=== PATIENT | male | born 1950 | race Caucasian/White ===

== ENCOUNTER 2020-11-07 15:38 | Inpatient (IN) | payer MEDICARE, SELFPAY ==
[2020-11-07] VITALS (14 sets, daily range): BP systolic 152–163; BP diastolic 75–88; PULSE 83–90; RESP 17–32; TEMP 36.4–36.8; O2SAT 96–100; BMI 35.5
--- NOTE | ~2020-11-07 | XR_ITS ---
XR chest 2V 11/07/2020 17:36 Indication: Anasarca. Scrotal and bilateral leg swelling. Procedure: PA and lateral views of the chest Comparison: No prior studies Findings: Patchy bilateral infiltrates, suspicious for pneumonia. Small pleural effusions. No pneumot horax. Cardiomegaly. Impression: 1: Patchy bilateral infiltrates, suspicious for pneumonia. 2: Small pleural effusions. Reviewed, dictated and finalized at location A. Y HUSBANDMAN Impression: 1: Patchy bilateral infiltrates, suspicious for pneumonia. 2: Small pleural effusions.
--- NOTE | ~2020-11-07 | CT_ITS ---
EXAMINATION: CT abdomen pelvis w con DATE: 11/07/2020 17:20 INDICATION: Anasarca. Scrotal swelling. TECHNIQUE: Computed tomography (CT) of the abdomen and pelvis was performed with 100 cc Omnipaque 350 intravenous contrast. The dose-length product was 1608.08 mGy-cm. Automated exposure control and ite rative reconstruction technique were employed. COMPARISON: None. FINDINGS: There are small-moderate bilateral pleural effusions. Dependent atelectasis. Heart size nor mal. There is diffuse subcutaneous edema. There is mild diffuse mesenteric edema. There is a fat-cont aining periumbilical hernia. There is mild thickening with enhancement of proximal small bowel, suspi cious for enteritis. No obstruction. Enlarged prostate gland. There is scrotal edema which is partial ly visualized. There is ascites. There is a 6.3 cm right renal cyst. The liver, spleen, adrenal glands are unremarka ble. There is a small exophytic 9 mm hyperdense lesion of the left kidney. There is atherosclerosis o f the aorta without aneurysm. There is diffuse pancreatic atrophy. There is moderate lower thoracic a nd lumbar spondylosis. No osteolytic or osteoblastic lesions. No free air is identified. Gallbladder is present. There is a small soft tissue nodule in the left up per abdomen which is isodense to the spleen, likely an accessory splenule. Prostate gland is enlarged . IMPRESSION: 1. Anasarca characterized by bilateral pleural effusions, ascites, subcutaneous edema and mesenteric edema. 2: Segmental mucosal thickening with enhancement of proximal small bowel, suspicious for enteritis. N o definite obstruction. 3: Hyperdense exophytic 9 mm left renal lesion which may represent benign hyperdense cyst, although r enal cell carcinoma is not excluded. Reviewed, dictated and finalized at location A. STANT PARALEGAL IMPRESSION: 1. Anasarca characterized by bilateral pleural effusions, ascites, subcutaneous edema and mesenteric edema. 2: Segmental mucosal thickening with enhancement of proximal small bowel, suspi cious for enteritis. No definite obstruction. 3: Hyperdense exophytic 9 mm left renal lesion which may represent benign hyper dense cyst, although renal cell carcinoma is not excluded.
--- NOTE | ~2020-11-07 | US_ITS ---
US scrotum doppler INDICATION: Scrotal wall edema with scrotal pain TECHNIQUE: Testicular sonogram utilizing grayscale and color Doppler FINDINGS: The testes are normal in size and appearance. No focal lesions are seen. The right testes measures 4.2 x 2.6 x 3.3 cm centimeters, and the left testis measures 4.5 x 2.6 x 3 cm cm. There is n ormal vascular flow to both testes. There is extensive scrotal wall edema bilaterally. There is a 6 mm left epididymal cyst. There is no varicocele or hydrocele. IMPRESSION: 1. Extensive scrotal wall edema suspicious for cellulitis. 2: 6 mm left epididymal cyst. Reviewed, dictated and finalized at location A. ER SALESMAN
--- NOTE | ~2020-11-07 | US_ITS ---
EXAMINATION: US abdomen duplex [employer] DATE: 11/08/2020 10:26 INDICATION: Anasarca TECHNIQUE: Grayscale, color Doppler, and pulsed Doppler images of the portal and hepatic veins and he patic artery are obtained. COMPARISON: None. FINDINGS: The main, left, and right portal veins are patent. Flow direction is hepatopetal. The hepat ic veins are patent. Normal flow is seen within the hepatic artery and inferior vena cava. IMPRESSION: 1. No evidence of thrombosis. Reviewed, dictated and finalized at location A. GEMENT DIRECTOR
[2020-11-07 16:19] LABS: Basophils Percent Auto 0.5 % (0.2-1.2); Eosinophils Percent Auto 0.8 % (0-4.4); Hemoglobin 10.3 g/dL (14.0-18.0); Immature Granulocyte Absolute 0.01 K/mm3 (0.00-0.031); Immature Granulocyte Percent A 0.3 % (0-0.5); Lymphocytes Absolute Auto 0.91 K/mm3 (0.9-3.2); Lymphocytes Percent Auto 24.3 % (18.3-44.2); Mean Corpuscular HGB Conc 32.2 g/dl (32-36); Mean Corpuscular Hemoglobin 29.2 pg (26-34); Mean Corpuscular Volume 90.7 fl (80-100); Mean Platelet Volume 11.3 fl (7.4-10.4); Monocytes Absolute Auto 0.5 K/mm3 (0.1-0.6); Monocytes Percent Auto 13.1 % (2.6-8.5); Neutrophils Absolute Auto 2.3 K/mm3 (1.3-6.7); Platelet Count Result 116 k/mm3 (150-375); Red Blood Count 3.53 M/mm3 (4.6-6.20); Red Cell Distribution Width 15.9 % (11.5-14.5); White Blood Count 3.8 K/mm3 (4.5-10.0)
[2020-11-07 16:35] LABS: Alanine Aminotransferase 30 U/L (4-50); Albumin Level 3.3 g/dL (3.5-5.1); Alkaline Phosphatase 99 U/L (38-126); Anion Gap 5 mmol/L (8-16); Aspartate Amino Transferase 49 U/L (17-59); Bilirubin,Total 3.2 mg/dL (0.2-1.3); Blood Urea Nitrogen 26 mg/dL (9-20); Calcium 9.3 mg/dL (8.4-10.2); Carbon Dioxide 30 mmol/L (22-30); Chloride 103 mmol/L (98-107); Estimated CRCL calculation 80 ml/min; Estimated Glomerular Filt Rate > 60; Glucose 112 mg/dL (75-110); Potassium 3.5 mmol/L (3.4-5.0); Sodium 138 mmol/L (137-145)
[2020-11-07 16:42] LABS: NT Pro B Type Natriuretic Pept 4510 PG/ML (5-100)
--- NOTE | 2020-11-07 18:03 | ED.GENADULT ---
HPI - General Adult General Chief complaint: Extremity Problem,Nontraumatic Stated complaint: Retaining Fluid Time Seen by Provider: 11/07/20 15:47 History of Present Illness HPI narrative: Patient is a 69-year-old male who presents to the ER with significant edema to his lower extremities, scrotum, and lower abdomen. Referred here by his PCP. Edema occurred over the last 4 to 6 weeks. He has been on Lasix 20 mg with no effect. Patient reports as being the year he went on a diet and was just doing portion control. He lost 90 pounds between beginning of the year in June. In June he developed a spontaneous DVT. He is on Eliquis since then. Reports compliance with his medications. He reports he is having some discomfort in his scrotum but thinks this may be due to the edema. He has a previous history of epididymitis and caused a swollen scrotum but he did not have the other edema at that time. Patient reports he had a colonoscopy 1 year ago that showed multiple polyps. He also is known to have enlarged prostate. No known history of heart failure. Related Data Home Medications Medication Instructions Recorded Confirmed allopurinol 300 mg PO DAILY 11/07/20 11/07/20 amlodipine 5 mg PO DAILY 11/07/20 11/07/20 apixaban [Eliquis] 5 mg PO BID 11/07/20 11/07/20 carvedilol 12.5 mg PO BID 11/07/20 11/07/20 finasteride 5 mg PO DAILY 11/07/20 11/07/20 furosemide 10 mg PO BID 11/07/20 11/07/20 Allergies Allergy/AdvReac Type Severity Reaction Status Date / Time No Known Allergies Allergy Verified 11/07/20 15:50 Review of Systems Review of Systems: All systems reviewed & are unremarkable except as noted in HPI and below Constitutional: Constitutional: Denies chills, Denies fever(s) and Denies weakness Comments: Anasarca ENT: Denies nasal congestion and Denies sore throat Cardiovascular: Cardiovascular: Denies chest pain, Denies rapid heart rate and Denies radiating jaw, neck or arm pain Respiratory: Respiratory: Denies cough, Denies dyspnea and Denies wheezing Gastrointestinal: Gastrointestinal: Denies abdominal pain, Denies nausea and Denies vomiting Genitourinary: Comments: Scrotal edema PMFSH Past Medical History Medical History BPH (benign prostatic hyperplasia) DVT (deep venous thrombosis) Hypertension Surgical History Surgical History H/O hernia repair History of appendectomy Family History Family History Mother Uterine cancer Social History Social History Smoking packs per day: 1 Smoking cigarettes per day: 20.0 Years smoked: 18 Smoking pack-years: 18.00 Smoking status: Former smoker Tobacco type: cigarettes Second hand tobacco smoke exposure: Yes Additional smoking assessment comments: smoked 1-2 packs/day during smokin period Alcohol intake: never Substance use: never Substance use type: does not use Gender identity (if verbalized by the patient): Male Spiritual care concerns: No Exam Narrative: Exam Narrative: GENERAL: Well-appearing, well-nourished, and in no acute distress. HEAD: Normocephalic, atraumatic. ENT: Mucous membranes moist. CHEST: Clear to auscultation. No respiratory distress. HEART: Regular rate and rhythm. Normal peripheral pulses. ABDOMEN: Soft, nontender, nondistended, bleeding of edema of the lower abdomen. EXTREMITIES: Normal range of motion. Edema up to the scrotum. : Edematous scrotum that is not cellulitic and is without lesions. Penis is buried below edema and foreskin. SKIN: Warm, dry, no rash. NEURO: Alert and oriented x3. PSYCH: Normal mood and affect. Course Course Emergency Course: Admit for observation diuresis. Will obtain an echocardiogram. Vital Signs Vital signs: Vital Signs Tempera
[2020-11-07] MEDS: FUROSEMIDE INJ 40 MG/4 ML VIAL IV PUSH (18:53)
--- NOTE | 2020-11-07 21:14 | PM.IMHP ---
H&P: HPI History of Present Illness Date/Time: 11/07/20 21:14 Chief Complaint: Worsening swelling of legs and scrotum Narrative: This is a pleasant 69 year old male known to be anticoagulated on Eliquis after having a LLE DVT in June of this year, HTN, and Gout was referred to the ER by his PCP for evaluation of increased peripheral edema which has been ongoing for the past 6 weeks. He has noticed a gradual increase of swelling from his belly down to his feet including his scrotum which worsened over the past few days. He denies any decreased urine output. He does not have any known history of liver, kidney disease, or heart failure. He has also had mild exertional shortness of breath but at rest he has no difficulty breathing. He also denies any previous history of cancer. He denies any recent fevers, chills, headache, chest pain, palpitations, cough, abdominal pain, nausea, vomiting, dysuria, hematuria, diarrhea or rectal bleeding. Routine labs were obtained in the ER which demonstrated pancytopenia, elevated BNP and low albumin. CT abd/pelvis showed anasarca and a hyperdense exophytic 9 mm left renal lesion. He has been treated with IV lasix in the ER and we have been asked to admit him to the hospital for diuresis and further care. No other complaints. Review of Systems Review of Systems: All systems reviewed & are unremarkable except as noted in HPI and below PMFSH Past Medical History Medical History (Updated 11/07/20 @ 21:36 by Shilo Field MD) BPH (benign prostatic hyperplasia) DVT (deep venous thrombosis) Hypertension Surgical History Surgical History (Updated 11/07/20 @ 21:22 by Shilo Field MD) H/O hernia repair History of appendectomy Family History Family History (Updated 11/07/20 @ 21:23 by Shilo Field MD) Mother Uterine cancer Social History Social History (Updated 11/07/20 @ 21:23 by Shilo Field MD) Smoking status: Never smoker Alcohol intake: current Substance use type: marijuana Meds Home Medications and Allergies Home Medications Medication Instructions Recorded Confirmed Type allopurinol 11/07/20 History amlodipine 11/07/20 History apixaban [Eliquis] mg 11/07/20 History carvedilol 11/07/20 History finasteride mg 11/07/20 History furosemide 11/07/20 History irbesartan mg 11/07/20 History nitrofurantoin monohyd/m-cryst 11/07/20 History Allergies Allergy/AdvReac Type Severity Reaction Status Date / Time No Known Allergies Allergy Verified 11/07/20 15:50 Vital Signs Vital Signs - 24 hr 11/07/20 15:48 11/07/20 16:10 11/07/20 16:42 Temperature 36.4 C L Pulse Rate 85 85 83 Respiratory Rate 25 H 22 H 26 H Blood Pressure 162/75 H Pulse Oximetry 100 100 100 11/07/20 17:45 11/07/20 18:00 11/07/20 18:27 Temperature Pulse Rate 89 87 85 Respiratory Rate 30 H 32 H 19 Blood Pressure Pulse Oximetry 100 100 100 11/07/20 18:44 11/07/20 18:59 11/07/20 19:00 Temperature Pulse Rate 86 90 87 Respiratory Rate 26 H 22 H 24 H Blood Pressure Pulse Oximetry 97 100 100 11/07/20 19:01 11/07/20 21:09 Temperature Pulse Rate 90 88 Respiratory Rate 17 18 Blood Pressure 163/88 H 158/82 H Pulse Oximetry 100 97 Exam Const: General: cooperative, alert, awake and uncomfortable Nutritional Appearance: overweight Orientation/consciousness: patient oriented x3 HENMT: Head: normal to inspection General nose exam: Normal external nose present Face and sinus: normal facial exam Mouth: Yes Normal oral and palatal mucosa present and Yes oropharynx normal Eyes: Pupils: Equal, round and reactive pupils present EOM: EOMs intact bilaterally Neck: Neck: supple and no JVD Thyroid: thyroid normal Lymphatic: lymphadenopathy not noted Resp: Effort & Inspection: normal respiratory effort Auscultation: diminished lung sounds Cardio: Rate: regular rate Rhythm: regular rhythm Heart sounds: no murmurs GI: Inspec
--- NOTE | 2020-11-07 21:51 | ADMGEN ---
This patient, Freddy Mejia, was admitted to Medical Room 241-. Patient/family oriented to hospital policies and general routines including ID bracelet, bed and alarms, visiting hours, pain management, procedures, bathroom and other care routines, personal items, smoking policy, room service/diet, and visiting hours. Information on how to activate the Rapid Response Team has been discussed. Patient/Family are encouraged to report perceived risks to care and to ask questions if they do not understand what they are told or what they should do.
[2020-11-07] MEDS: LIDOCAINE HCL 2% JELLY 5 ML TUBE 1 APPLIC MUCOUS MEM (23:24)
[2020-11-07] MEDS: TOLNAFTATE 1% POWDER 45 GM BTL 1 APPLIC TOPICAL (23:24)
[2020-11-08] VITALS (13 sets, daily range): BP systolic 129–159; BP diastolic 58–76; PULSE 71–92; RESP 18–21; TEMP 36.3–36.9; O2SAT 93–100
[2020-11-08] MEDS: ACETAMINOPHEN 325 MG TABLET 650 MG PO ×2 (03:49→22:31)
[2020-11-08] MEDS: FUROSEMIDE INJ 40 MG/4 ML VIAL IV PUSH ×2 (05:18→17:58)
--- NOTE | 2020-11-08 06:00 | ECHO_ITS ---
Patient Info Name: Freddy Mejia Age: 69 years : 1950 Gender: Male Ht: 70 in Wt: 247 lbs BSA: 2.39 m2 HR: 78 bpm BP: 129 / 58 mmHg Heart Rhythm: Sinus Rhythm Technical Quality: Good Exam Date: 11/08/2020 11:49 AM Exam Location: [facility] Room: 241 Patient Status: Inpatient Admit Date: 11/08/2020 Staff Ordering Physician: Carlos Coelho MD [place]er: Delores Guillory RDCS Attending Provider: Ruth Leach PA-C Referring Physician: Meliton FRANK; Exam Type: CA echo doppler color flow Study Info Indications - chf ISAAC Complete two-dimensional, color flow and Doppler transthoracic echocardiogram is performed. Summary 1. Left ventricular systolic function is normal, estimated at 65-70%. 2. There is mildly increased left ventricular wall thickness. 3. The left ventricular diastolic function is abnormal. 4. Left atrial chamber dimension is severely enlarged. 5. Right atrial chamber dimension is severely enlarged. 6. There is mild to moderate tricuspid valve regurgitation. 7. Severe pulmonary hypertension, estimated pulmonary arterial systolic pressure is 63 mmHg. 8. Normal inferior vena cava with <50% collapse upon inspiration consistent with elevated right atrial pressure, 10 mmHg. Left Ventricle Left ventricular chamber dimension is normal. Left ventricular systolic function is normal, estimated at 65-70%. There is mildly increased left ventricular wall thickness. The left ventricular diastolic function is abnormal. Right Ventricle Right ventricular chamber dimension is normal. Right ventricular systolic function is normal. Left Atria Left atrial chamber dimension is severely enlarged. Right Atria Right atrial chamber dimension is severely enlarged. Aortic Valve The aortic valve is probable trileaflet. There is no aortic valve stenosis. There is mild aortic valve regurgitation. Pulmonic Valve The pulmonic valve is not well visualized. There is trace pulmonic regurgitation. Mitral Valve The mitral valve has normal leaflets. There is mild mitral valve regurgitation. The mitral valve annulus is mildly calcified. Tricuspid Valve The tricuspid valve leaflets are normal. There is mild to moderate tricuspid valve regurgitation. Severe pulmonary hypertension, estimated pulmonary arterial systolic pressure is 63 mmHg. Pericardium/Pleural The pericardium appears normal. There is trivial pericardial effusion. Inferior Vena Cava Normal inferior vena cava with <50% collapse upon inspiration consistent with elevated right atrial pressure, 10 mmHg. Aorta The aortic root size at the sinus of Valsalva is normal. Left Ventricular Outflow Tract Name Value Normal LVOT 2D LVOT Diameter 2.1 cm LVOT Doppler LVOT Peak Gradient 5 mmHg LVOT Mean Gradient 3 mmHg LVOT VTI 22 cm LVOT VTI/AV VTI Ratio 0.7 LVOT Stroke Volume 79 ml LVOT CO 17.2 l/min LVOT CI
[2020-11-08 06:19] LABS: Basophils Percent Auto 0.6 % (0.2-1.2); Eosinophils Percent Auto 0.3 % (0-4.4); Hematocrit 29.4 % (42.0-52.0); Hemoglobin 9.8 g/dL (14.0-18.0); Immature Granulocyte Absolute 0.01 K/mm3 (0.00-0.031); Immature Granulocyte Percent A 0.3 % (0-0.5); Lymphocytes Absolute Auto 0.85 K/mm3 (0.9-3.2); Lymphocytes Percent Auto 24.3 % (18.3-44.2); Mean Corpuscular HGB Conc 33.3 g/dl (32-36); Mean Corpuscular Hemoglobin 29.7 pg (26-34); Mean Corpuscular Volume 89.1 fl (80-100); Mean Platelet Volume 12.1 fl (7.4-10.4); Monocytes Absolute Auto 0.5 K/mm3 (0.1-0.6); Monocytes Percent Auto 13.4 % (2.6-8.5); Neutrophils Absolute Auto 2.1 K/mm3 (1.3-6.7); Neutrophils Percent Auto 61.1 % (45.5-73.1); Platelet Count Result 108 k/mm3 (150-375); Red Cell Distribution Width 15.9 % (11.5-14.5); White Blood Count 3.5 K/mm3 (4.5-10.0)
[2020-11-08 06:32] LABS: Alanine Aminotransferase 27 U/L (4-50); Albumin Level 2.9 g/dL (3.5-5.1); Alkaline Phosphatase 79 U/L (38-126); Anion Gap 6 mmol/L (8-16); Aspartate Amino Transferase 40 U/L (17-59); Bilirubin,Total 3.4 mg/dL (0.2-1.3); Blood Urea Nitrogen 24 mg/dL (9-20); Calcium 9.2 mg/dL (8.4-10.2); Carbon Dioxide 29 mmol/L (22-30); Chloride 102 mmol/L (98-107); Estimated CRCL calculation 88 ml/min; Estimated Glomerular Filt Rate > 60; Glucose 88 mg/dL (75-110); Potassium 3.1 mmol/L (3.4-5.0); Sodium 137 mmol/L (137-145)
[2020-11-08 07:05] LABS: Thyroid Stimulating Hormone Reflex < 0.015 uIU/mL (0.465-4.68)
--- NOTE | 2020-11-08 07:48 | WPDURCON ---
Assessment and Plan Assessment and plan (1) Mass of kidney: Code(s): N28.89 - Other specified disorders of kidney and ureter Status: Acute Assessment and Plan: 9 mm hyperdense exophytic lesion of left kidney indeterminate in nature. At this point time this is extremely small does not require any intervention. Can follow up as an outpatient with reimaging in approximately 6 months time. Discussed with patient. (2) Anasarca: Code(s): R60.1 - Generalized edema Status: Acute Assessment and Plan: Management by Medicine Service. Scrotal edema is consistent with his generalized anasarca into resolve with time. Recommend continue scrotal elevation and ice pack as needed for comfort. Urology Consult Note HPI Date Seen: 11/08/20 Time Seen: 07:48 Requesting Physician: Ruth Leach PA-C Primary Care Provider: Davis Perez, Consult Narrative Reason for consult: 9 mm left renal lesion Narrative: Freddy Mejia is a 69 year old male who tells me he had seen Dr. Post about 4 months ago for a questionable bladder lesion. He subsequently has developed a DVT and has been on Eliquis. He also has developed significant scrotal edema with generalized anasarca. He was admitted refer for that reason. During evaluation he was found to have a 9 mm left renal exophytic lesion which was indeterminate in nature. Denies any gross hematuria. Review of Systems Review of Systems: All systems reviewed & are unremarkable except as noted in HPI and below PMFSH Past Medical History Medical History BPH (benign prostatic hyperplasia) DVT (deep venous thrombosis) Hypertension Surgical History Surgical History H/O hernia repair History of appendectomy Family History Family History Mother Uterine cancer Social History Social History Smoking packs per day: 1 Smoking cigarettes per day: 20.0 Years smoked: 18 Smoking pack-years: 18.00 Smoking status: Former smoker Tobacco type: cigarettes Second hand tobacco smoke exposure: Yes Additional smoking assessment comments: smoked 1-2 packs/day during smokin period Alcohol intake: never Substance use: never Substance use type: does not use Gender identity (if verbalized by the patient): Male Spiritual care concerns: No Meds Home Medications and Allergies Home Medications Medication Instructions Recorded Confirmed Type allopurinol 300 mg PO DAILY 11/07/20 11/07/20 History amlodipine 5 mg PO DAILY 11/07/20 11/07/20 History apixaban [Eliquis] 5 mg PO BID 11/07/20 11/07/20 History carvedilol 12.5 mg PO BID 11/07/20 11/07/20 History finasteride 5 mg PO DAILY 11/07/20 11/07/20 History furosemide 10 mg PO BID 11/07/20 11/07/20 History Allergies Allergy/AdvReac Type Severity Reaction Status Date / Time No Known Allergies Allergy Verified 11/07/20 15:50 Vital Signs Vital Signs - 24 hr 11/07/20 15:48 11/07/20 16:10 11/07/20 16:42 Temperature 36.4 C L Pulse Rate 85 85 83 Respiratory Rate 25 H 22 H 26 H Blood Pressure 162/75 H Pulse Oximetry 100 100 100 11/07/20 17:45 11/07/20 18:00 11/07/20 18:27 Temperature Pulse Rate 89 87 85 Respiratory Rate 30 H 32 H 19 Blood Pressure Pulse Oximetry 100 100 100 11/07/20 18:44 11/07/20 18:59 11/07/20 19:00 Temperature Pulse Rate 86 90 87 Respiratory Rate 26 H 22 H 24 H Blood Pressure Pulse Oximetry 97 100 100 11/07/20 19:01 11/07/20 21:09 11/07/20 22:00 Temperature 36.8 C Pulse Rate 90 88 90 Respiratory Rate 17 18 20 Blood Pressure 163/88 H 158/82 H 152/77 H Pulse Oximetry 100 97 99 11/07/20 23:30 11/07/20 23:45 11/08/20 01:41 Temperature Pulse Rate 86 86 92 Respiratory Rate Blood Pr
[2020-11-08 09:01] LABS: Free T4 Free Thyroxine Reflex 5.71 ng/dL (0.78-2.19)
[2020-11-08] MEDS: TOLNAFTATE 1% POWDER 45 GM BTL 1 APPLIC TOPICAL ×2 (09:15→20:23)
[2020-11-08] MEDS: POTASSIUM CHLORIDE 20 MEQ TABLET 40 MEQ PO (09:15)
[2020-11-08] MEDS: atenoloL 25 MG TABLET PO (10:43)
[2020-11-08] MEDS: methiMAzole 5 MG TAB PO (10:43)
[2020-11-08] MEDS: ENOXAPARIN 120 MG/0.8 ML SYRINGE 110 MG SUB-Q (10:44)
[2020-11-08 11:46] LABS: Total Triiodothyronine (T3) 2.16 NG/ML (0.97-1.69)
[2020-11-08 11:53] LABS: Add Urine Microscopic? YES; Appearance Urine Clear (Clear); Bacteria Urine Trace /hpf; Bilirubin Urine Negative (Negative); Blood Urine 3+ (Negative); Color Urine Yellow (Yellow); Glucose Urine UA Negative (Negative); Ketones Urine Negative (Negative); Leukocyte Esterase Ur 1+ LEU/UL (Negative); Mucus Urine Rare /lpf; Nitrate Urine Negative (Negative); Protein Urine 2+ mg/dL (Negative); RBC Urine >75 /hpf (0-2); Specific Grav Ur 1.024 (1.001-1.035); WBC Urine >75 /hpf
[2020-11-08 12:21] LABS: Folic Acid 7.8 ng/mL (2.76->20)
--- NOTE | 2020-11-08 13:40 | PM.IMPN ---
Progress Note: A&P Assessment and Plan (1) Hyperthyroidism: Code(s): E05.90 - Thyrotoxicosis, unspecified without thyrotoxic crisis or storm Status: Acute Assessment and Plan: The patient's TSH is undetectable and T4 is 5.7 which could be causing a lot of his symptoms -he also has been noting tremors and diarrhea as well as edema -I have started methimazole as well as atenolol -he needs a thyroid uptake scan but this cannot be done here [facility] as [facility] needs a weeks notice -I have left a message with Dr. Perez -will follow his pancytopenia closely (2) Anasarca: Code(s): R60.1 - Generalized edema Status: Acute Assessment and Plan: Unclear etiology at this time but could be due to hypothyroidism -albumin is also low at 2.9 -echo pending -will continue Lasix 40 mg b.i.d. but may consider adding a 2nd agent or albumin -if the swelling does not improve, consider Nephrology consult -and will continue Muniz catheter to watch strict intake and output (3) Mass of kidney: Code(s): N28.89 - Other specified disorders of kidney and ureter Status: Acute Assessment and Plan: Found incidentally and is very small -follow with Urology outpatient (4) Groin rash: Code(s): R21 - Rash and other nonspecific skin eruption Status: Acute Assessment and Plan: Continue Tolnaftate topically BID. (5) Pancytopenia: Code(s): D61.818 - Other pancytopenia Status: Acute Assessment and Plan: Peripheral smear shows likely dilution or bone marrow disease -because of his clinical picture, suspect hemodilution -continue diuretic therapy and monitor -if he continues to be pancytopenic, may need bone marrow biopsy outpatient (6) Chronic anticoagulation: Code(s): Z79.01 - shelter (current) use of anticoagulants Status: Chronic Assessment and Plan: Continue Eliquis (7) Hypertension: Qualifiers: Hypertension type: unspecified Qualified Code(s): I10 - Essential (primary) hypertension Code(s): I10 - Essential (primary) hypertension Status: Chronic Assessment and Plan: Blood pressure 129/58 - continue amlodipine and atenolol (8) Suspected UTI: Code(s): R39.89 - Other symptoms and signs involving the genitourinary system Status: Acute Assessment and Plan: UA shows possible UTI. Will start ceftriaxone and await cultures Additional Plan Plan discussed with supervising physician Dr. Abdirahman Gonzales Time Spent With Patient Time with patient: 25 - 35 minutes Subjective Date/time seen: 11/08/20 13:40 Interval history: Pt is a 69-year-old male here for swelling. Patient was seen today and states he is still very small inferior who is not having any shortness of breath at rest but can get short of breath when moving. Had no chest pain, palpitation, nausea, vomiting, or cough. In hindsight he states he has noticed tremors and has had diarrhea for the last 6 months. He has never had any issues with his thyroid that he knows of and has no known heart disease. Review of Systems Review of Systems: All systems reviewed & are unremarkable except as noted in HPI and below Exam Narrative: Exam Narrative: General: Well developed well nourished patient in NAD HEENT: normocephalic Neck: supple Neuro: Alert and oriented x4 CV:RRR. Telemetry with no significant abnormalities Resp: Crackles at the bases, good air movement Abd: Soft, non distended. No pain to palpation. Positive bowel sounds Extremities: 3+ pitting edema up to the knee. No erythema or warmth Scrotal swelling noted 3+ Objective Data Vital Signs Vital Signs: Vital Signs - 24 hr 11/07/20 15:48 11/07/20 16:10 11/07/20 16:42 Temperature 97.5 F L Pulse Rate 85 85 83 Respiratory Rate 25 H 22 H 26 H Blood Pressure 162/75 H Pulse Oximetry 100 100 100 11/07/20 17:45 12
[2020-11-08 15:01] LABS: Vancomycin Random < 5.0 ug/mL (10-20)
[2020-11-08] MEDS: APIXABAN 5 MG TABLET PO (17:58)
[2020-11-08] MEDS: POTASSIUM CHLORIDE 20 MEQ TABLET PO (18:00)
[2020-11-09] VITALS (7 sets, daily range): BP systolic 134–156; BP diastolic 61–71; PULSE 65–79; RESP 16–20; TEMP 36.4–36.8; O2SAT 98–100
[2020-11-09] MEDS: FUROSEMIDE INJ 40 MG/4 ML VIAL IV PUSH ×2 (05:26→17:13)
[2020-11-09 06:17] LABS: Alanine Aminotransferase 26 U/L (4-50); Albumin Level 2.7 g/dL (3.5-5.1); Alkaline Phosphatase 75 U/L (38-126); Anion Gap 4 mmol/L (8-16); Aspartate Amino Transferase 36 U/L (17-59); Bilirubin,Total 2.7 mg/dL (0.2-1.3); Blood Urea Nitrogen 21 mg/dL (9-20); Calcium 8.9 mg/dL (8.4-10.2); Carbon Dioxide 32 mmol/L (22-30); Chloride 101 mmol/L (98-107); Estimated CRCL calculation 98 ml/min; Estimated Glomerular Filt Rate > 60; Glucose 96 mg/dL (75-110); Potassium 3.1 mmol/L (3.4-5.0); Sodium 137 mmol/L (137-145)
[2020-11-09 06:31] LABS: Basophils Percent Auto 0.5 % (0.2-1.2); Eosinophils Absolute Auto 0.1 K/mm3 (0-0.3); Eosinophils Percent Auto 1.6 % (0-4.4); Hematocrit 30.3 % (42.0-52.0); Hemoglobin 10.1 g/dL (14.0-18.0); Immature Granulocyte Absolute 0.03 K/mm3 (0.00-0.031); Immature Granulocyte Percent A 0.8 % (0-0.5); Lymphocytes Absolute Auto 1.16 K/mm3 (0.9-3.2); Lymphocytes Percent Auto 31.6 % (18.3-44.2); Mean Corpuscular HGB Conc 33.3 g/dl (32-36); Mean Corpuscular Hemoglobin 29.4 pg (26-34); Mean Corpuscular Volume 88.1 fl (80-100); Mean Platelet Volume 12.7 fl (7.4-10.4); Monocytes Absolute Auto 0.5 K/mm3 (0.1-0.6); Monocytes Percent Auto 14.4 % (2.6-8.5); Neutrophils Absolute Auto 1.9 K/mm3 (1.3-6.7); Neutrophils Percent Auto 51.1 % (45.5-73.1); Platelet Count Result 120 k/mm3 (150-375); Red Blood Count 3.44 M/mm3 (4.6-6.20); Red Cell Distribution Width 15.8 % (11.5-14.5); White Blood Count 3.7 K/mm3 (4.5-10.0)
[2020-11-09] MEDS: methiMAzole 5 MG TAB PO (08:17)
[2020-11-09] MEDS: atenoloL 25 MG TABLET PO (08:17)
[2020-11-09] MEDS: FINASTERIDE 5 MG TABLET PO (08:17)
[2020-11-09] MEDS: APIXABAN 5 MG TABLET PO ×2 (08:18→17:14)
[2020-11-09] MEDS: amLODIPine BESYLATE 5 MG TABLET PO (08:18)
[2020-11-09] MEDS: allopurinoL 300 MG TABLET PO (08:18)
[2020-11-09] MEDS: TOLNAFTATE 1% POWDER 45 GM BTL 1 APPLIC TOPICAL ×2 (08:19→20:22)
[2020-11-09] MEDS: POTASSIUM CHLORIDE 20 MEQ TABLET 40 MEQ PO ×2 (10:56→20:22)
[2020-11-09] MEDS: SPIRONOLACTONE 25 MG TABLET PO (10:59)
[2020-11-09] MEDS: acetaZOLAMIDE TAB 250 MG TABLET 500 MG PO ×2 (10:59→20:22)
--- NOTE | 2020-11-09 11:12 | PM.CNNEP ---
Assessment and Plan Assessment and plan (1) Anasarca: Code(s): R60.1 - Generalized edema Status: Acute Assessment and Plan: The patient has severe swelling. Multiple etiologies could be in play. He does have 2+ protein on his urinalysis and low albumin levels, and so could have nephrotic range proteinuria. However his urinalysis showed a specific gravity of 1.024 suggesting a very concentrated urine so the proteinuria on dipstick might exaggerated what he really spills. Will check a urine protein to creatinine ratio to settle this issue. The patient has pulmonary hypertension and tricuspid regurgitation. This can certainly cause swelling as well. The patient is a former smoker and has sleep apnea which could each cause pulmonary hypertension. He did have DVTs a few months ago and so could have had pulmonary emboli which could also contribute to the pulmonary hypertension. The patient says he has been really good about following his low-salt diet. His is a nurse and does all the cooking and they have not been going out to dinner because of COVID so has been on a fairly well-controlled diet. The patient is on amlodipine. This is not a new medication for him but still could contribute to his swelling. At this point I am going to get urine protein to creatinine ratio and a urine sodium level. If he has lots of protein then looking get a 24hour urine. I would also like to stop the amlodipine and change to something different if his blood pressure starts to rise. The patient is on furosemide. This has led to some hypokalemia and high bicarb. I am adding spironolactone and acetazolamide to help with these issues. I will check a potassium later this afternoon because he is also getting potassium supplements. (2) Suspected UTI: Code(s): R39.89 - Other symptoms and signs involving the genitourinary system Status: Acute Assessment and Plan: The patient had a positive urinalysis. Cultures are pending. He is on ceftriaxone. (3) Hyperthyroidism: Code(s): E05.90 - Thyrotoxicosis, unspecified without thyrotoxic crisis or storm Status: Acute Assessment and Plan: The patient is getting treatment for this. (4) Hypertension: Qualifiers: Hypertension type: unspecified Qualified Code(s): I10 - Essential (primary) hypertension Code(s): I10 - Essential (primary) hypertension Status: Chronic Assessment and Plan: The patient's blood pressure is under good control now. I did stop his amlodipine. We will have to fold something else in down the line if his blood pressure rises. Because of the severity of his right heart failure and intensity of his diuretics, his blood pressure may end up not rising at all. (5) Mass of kidney: Code(s): N28.89 - Other specified disorders of kidney and ureter Status: Acute Assessment and Plan: Urology saw the patient for this History of Present Illness Reason for Consult Consult date: 11/09/20 Chief Complaint Chief complaint: chf, anasarca, renal mass History of Present Illness Narrative: Freddy is a very pleasant 69-year-old gentleman who has hypertension for many years, DVT earlier this year on Eliquis, obstructive sleep apnea on a CPAP machine for 5 years which he uses religiously, and BPH on finasteride. The patient had left leg swelling for the DVT. This was diagnosed in he was anticoagulated. The swelling improved for the most part. Then in September his swelling worsened in both legs. This gradually worsened and recently has been really bad with scrotal swelling and swelling throughout the legs and also hips. He came to the hospital because of this swelling. The patient denies any shortness of breath or chest pain. However in the last few weeks, because of having to drag around all that fluid, he did notice some dyspnea on exertion. He was evaluated in the emergency room and found to be very swol
--- NOTE | 2020-11-09 11:15 | PM.IMPN ---
Progress Note: A&P Assessment and Plan (1) Hyperthyroidism: Code(s): E05.90 - Thyrotoxicosis, unspecified without thyrotoxic crisis or storm Status: Acute Assessment and Plan: The patient's TSH is undetectable and T4 is 5.7 which could be causing a lot of his symptoms -he also has been noting tremors and diarrhea as well as edema -I have started methimazole as well as atenolol -he needs a thyroid uptake scan but this cannot be done here [facility] as it needs a weeks notice -I have left a message with Dr. Perez -will follow his pancytopenia closely (2) Anasarca: Code(s): R60.1 - Generalized edema Status: Acute Assessment and Plan: Unclear etiology at this time but could be due to hypothyroidism -the patient's echo shows severe pulmonary hypertension with tricuspid regurg. Could be right heart failure -continue CPAP -albumin is also low at 2.6, urine studies ordered -will continue Lasix 40 mg b.i.d -nephrology has been consulted and added spironolactone and Diamox -and will continue Muniz catheter to watch strict intake and output -patient has possible UTI, continue ceftriaxone and await cultures -amlodipine stopped (3) Mass of kidney: Code(s): N28.89 - Other specified disorders of kidney and ureter Status: Acute Assessment and Plan: Found incidentally and is very small -follow with Urology outpatient (4) Groin rash: Code(s): R21 - Rash and other nonspecific skin eruption Status: Acute Assessment and Plan: Continue Tolnaftate topically BID. (5) Pancytopenia: Code(s): D61.818 - Other pancytopenia Status: Acute Assessment and Plan: Peripheral smear shows likely dilution or bone marrow disease -because of his clinical picture, suspect hemodilution -continue diuretic therapy and monitor -if he continues to be pancytopenic, may need bone marrow biopsy outpatient (6) Chronic anticoagulation: Code(s): Z79.01 - nursing home (current) use of anticoagulants Status: Chronic Assessment and Plan: Continue Eliquis (7) Hypertension: Qualifiers: Hypertension type: unspecified Qualified Code(s): I10 - Essential (primary) hypertension Code(s): I10 - Essential (primary) hypertension Status: Chronic Assessment and Plan: Blood pressure 140/61 - continue atenolol (8) Suspected UTI: Code(s): R39.89 - Other symptoms and signs involving the genitourinary system Status: Acute Assessment and Plan: UA shows possible UTI. Continue ceftriaxone and await cultures Additional Plan Plan discussed with Dr. Ochoa Subjective Date/time seen: 11/09/20 11:15 Interval history: Pt is a 69-year-old male here for swelling. Patient was seen today and states his swelling has not gone down. He thinks his breathing is a little bit better but that is about it. He drink a lot a water yesterday and we discussed his now fluid restriction. We reviewed his echo and the current plan of care. He denies chest pain, shortness of breath, fevers, chills, abdominal pain, nausea or vomiting. He had a bowel movement today which seemed normal for him. No additional diarrhea Exam Narrative: Exam Narrative: General: Well developed well nourished patient in NAD HEENT: normocephalic Neck: supple Neuro: Alert and oriented x4 CV:RRR. Telemetry with no significant abnormalities Resp: CTA Abd: Soft, non distended. No pain to palpation. Positive bowel sounds Extremities: 3+ pitting edema up to the knee. No erythema or warmth Scrotal swelling noted 3+ Objective Data Vital Signs Vital Signs: Vital Signs - 24 hr 11/08/20 12:00 11/08/20 14:00 11/08/20 16:00 Temperature 97.4 F L Pulse Rate 72 71 71 Respiratory Rate 18 Blood Pressure 159/76 H Pulse Oximetry 100 11/08/20 20:00 11/08/20 21:35 11/08/20 22:00 Temperature 97.3 F L
[2020-11-09 12:23] LABS: Creatinine Urine 41.7 mg/dL; Total Protein Urine Random 21 mg/dL
[2020-11-09 12:29] LABS: Sodium Urine Random 107 meq/L
[2020-11-09 12:47] LABS: Creatinine Urine 41.8 mg/dL
[2020-11-09 12:52] LABS: MALB Creatinine Ratio 74.6 mg/g (0-30); Microalbumin Urine Random 31.2 mg/L (0-16.7)
[2020-11-09 16:44] LABS: Potassium 3.7 mmol/L (3.4-5.0)
[2020-11-09] MEDS: ACETAMINOPHEN 325 MG TABLET 650 MG PO (22:17)
[2020-11-10] MEDS: MELATONIN 3 MG TABLET PO ×2 (01:43→20:27)
[2020-11-10 05:22] VITALS: BP 125/53; PULSE 67; RESP 16; TEMP 36.4; O2SAT 100
[2020-11-10 05:43] LABS: Hemoglobin 10.7 g/dL (14.0-18.0); Immature Platelet Fraction Pct 4.5 % (0.9-11.2); Mean Corpuscular HGB Conc 32.4 g/dl (32-36); Mean Corpuscular Volume 92.4 fl (80-100); Mean Platelet Volume 11.7 fl (7.4-10.4); Platelet Count Result 120 k/mm3 (150-375); Red Blood Count 3.57 M/mm3 (4.6-6.20); Red Cell Distribution Width 15.9 % (11.5-14.5); White Blood Count 4.2 K/mm3 (4.5-10.0)
[2020-11-10] MEDS: FUROSEMIDE INJ 40 MG/4 ML VIAL IV PUSH ×2 (05:43→17:39)
[2020-11-10] MEDS: ACETAMINOPHEN 325 MG TABLET 650 MG PO (05:44)
[2020-11-10 06:01] LABS: Alanine Aminotransferase 26 U/L (4-50); Albumin Level 2.8 g/dL (3.5-5.1); Alkaline Phosphatase 74 U/L (38-126); Anion Gap 4 mmol/L (8-16); Aspartate Amino Transferase 34 U/L (17-59); Bilirubin,Total 2.3 mg/dL (0.2-1.3); Blood Urea Nitrogen 21 mg/dL (9-20); Calcium 8.9 mg/dL (8.4-10.2); Carbon Dioxide 31 mmol/L (22-30); Chloride 102 mmol/L (98-107); Estimated CRCL calculation 79 ml/min; Estimated Glomerular Filt Rate > 60; Glucose 105 mg/dL (75-110); Magnesium 1.8 mg/dL (1.6-2.3); Potassium 3.6 mmol/L (3.4-5.0); Sodium 137 mmol/L (137-145)
[2020-11-10 08:26] VITALS: PULSE 88; RESP 20; O2SAT 98
--- NOTE | 2020-11-10 08:27 | PM.PNNEP ---
Progress Note: A&P Assessment and Plan (1) Anasarca: Code(s): R60.1 - Generalized edema Status: Acute Assessment and Plan: The patient has severe swelling. Multiple etiologies could be in play. The patient has pulmonary hypertension and tricuspid regurgitation. He had DVTs and wonder few might have had pulmonary emboli in the past. The patient is on amlodipine. This is not a new medication for him but still could contribute to his swelling. He has 500 mg of protein per g of creatinine. It is unlikely that this is contributing to his swelling. At this point we can continue the loop diuretic, spironolactone, and the see it is a limited to try for a balanced diuresis. Consider a V/Q scan? (2) Suspected UTI: Code(s): R39.89 - Other symptoms and signs involving the genitourinary system Status: Acute Assessment and Plan: The patient had a positive urinalysis. Cultures are negative. (3) Hyperthyroidism: Code(s): E05.90 - Thyrotoxicosis, unspecified without thyrotoxic crisis or storm Status: Acute Assessment and Plan: The patient is getting treatment for this. (4) Hypertension: Qualifiers: Hypertension type: unspecified Qualified Code(s): I10 - Essential (primary) hypertension Code(s): I10 - Essential (primary) hypertension Status: Chronic Assessment and Plan: The patient's blood pressure is running 120-160. (5) Mass of kidney: Code(s): N28.89 - Other specified disorders of kidney and ureter Status: Acute Assessment and Plan: Urology saw the patient for this Subjective Date/time seen: 11/10/20 08:27 Interval history: Freddy is a very pleasant 69-year-old gentleman who has a edema. He says he made plenty of urine overnight. Edema is about the same. Review of Systems Cardiovascular: Cardiovascular: Reports no additional cardiovascular complaints Respiratory: Respiratory: Reports no additional respiratory complaints Gastrointestinal: Gastrointestinal: Reports no additional gastrointestinal complaints Genitourinary: Genitourinary: Reports no additional male genitourinary complaints Exam Narrative: Exam Narrative: WDWN in NAD skin no rash head ncat lungs clear cor reg no rub abd BS+ nontender and soft ext 2-3+ edema. Objective Data Vital Signs Vital Signs: Vital Signs - 24 hr 11/09/20 14:00 11/09/20 20:35 11/10/20 05:22 Temperature 36.4 C L 36.6 C 36.4 C Pulse Rate 65 72 67 Respiratory Rate 16 16 16 Blood Pressure 134/67 156/71 H 125/53 L Pulse Oximetry 100 100 100 11/10/20 08:26 Temperature Pulse Rate 88 Respiratory Rate 20 Blood Pressure Pulse Oximetry 98 Intake/Output Intake/Output: Intake & Output 11/07/20 11/08/20 11/09/20 11/10/20 23:59 23:59 23:59 23:59 Intake Total 2770 2090 540 Output Total 2421 3229 1400 Balance 641 -9745 -642 Meds/Results Medications: Active Medications Generic Name Dose Route Start Last Admin Trade Name Freq PRN Reason Stop Dose Admin Acetaminophen 650 mg 11/07/20 19:30 11/10/20 05:44 Acetaminophen 325 Mg Tablet PO 650 mg Q4H PRN Administration Mild Pain (1-3) or Fever Hydrocodone Bitart/Acetaminophen 1 tab 11/07/20 19:30 Hydrocodone/Acetaminophen (*Crx) 5-325 Mg Tablet PO Q4H PRN Pain Rated 4-6 Acetazolamide 500 mg 11/09/20 10:50 11/09/20 20:22 Acetazolamide Tab 250 Mg Tablet PO 500 mg Q12HR CARLOS Administration Allopurinol 300 mg 11/09/20 09:00 11/09/20 08:18 Allopurinol 300 Mg Tablet PO 300 mg DAILY CARLOS Administration Apixaban 5 mg 11/08/20 17:00 11/09/20 17:14 Apixaban 5 Mg Tablet PO 5 mg BID CARLOS Administration Atenolol 25 mg 11/08/20 09:20 11/09/20 08:17 Atenolol 25 Mg Tablet PO 25 mg DAILY CARLOS Administration Finasteride 5 mg 11/09/20 09:00 11/09/20 08:17 Finasteride 5 Mg Tablet PO 5 mg DAILY CARLOS Administration Furosemi
--- NOTE | 2020-11-10 09:06 | PM.IMPN ---
Progress Note: A&P Assessment and Plan (1) Hyperthyroidism: Code(s): E05.90 - Thyrotoxicosis, unspecified without thyrotoxic crisis or storm Status: Acute Assessment and Plan: The patient's TSH is undetectable and T4 is 5.7 which could be causing a lot of his symptoms -he also has been noting tremors and diarrhea as well as edema -Continue methimazole as well as atenolol -he needs a thyroid uptake scan but this cannot be done here [facility] as it needs a weeks notice -I have left a message with Dr. Perez -will follow his pancytopenia closely. It appears to be improving (2) Anasarca: Code(s): R60.1 - Generalized edema Status: Acute Assessment and Plan: Unclear etiology at this time but could be due to hypothyroidism and right heart failure -the patient's echo shows severe pulmonary hypertension with tricuspid regurg. Could be right heart failure -continue CPAP -albumin is also low at 2.8 -Mild proteinuria, not enough to cause this much swelling -microalbuminuria could be due to UTI? Although urine culture negative. No diabetes suspected -will continue Lasix 40 mg b.i.d, spironolactone and Diamox -Muniz discontinued, continue strict eyes and nose -continue ceftriaxone -amlodipine stopped (3) Mass of kidney: Code(s): N28.89 - Other specified disorders of kidney and ureter Status: Acute Assessment and Plan: Found incidentally and is very small -follow with Urology outpatient (4) Groin rash: Code(s): R21 - Rash and other nonspecific skin eruption Status: Acute Assessment and Plan: Continue Tolnaftate topically BID. (5) Pancytopenia: Code(s): D61.818 - Other pancytopenia Status: Acute Assessment and Plan: Peripheral smear shows likely dilution or bone marrow disease -because of his clinical picture, suspect hemodilution as it is getting better with diuretic therapy -continue diuretic therapy and monitor -if he continues to be pancytopenic, may need bone marrow biopsy outpatient (6) Chronic anticoagulation: Code(s): Z79.01 - group home (current) use of anticoagulants Status: Chronic Assessment and Plan: Continue Eliquis (7) Hypertension: Qualifiers: Hypertension type: unspecified Qualified Code(s): I10 - Essential (primary) hypertension Code(s): I10 - Essential (primary) hypertension Status: Chronic Assessment and Plan: Blood pressure 125/53 - continue atenolol (8) Suspected UTI: Code(s): R39.89 - Other symptoms and signs involving the genitourinary system Status: Acute Assessment and Plan: Urine culture negative but suspect possible UTI still a factor. -continue ceftriaxone -repeat UA (9) Hematuria: Code(s): R31.9 - Hematuria, unspecified Status: Acute Assessment and Plan: Noted today but also seen microscopic on his UA -would recommend following up with Urology outpatient (10) Moderate to severe pulmonary hypertension: Code(s): I27.20 - Pulmonary hypertension, unspecified Status: Acute Assessment and Plan: Patient has a manager [employer] and plans to follow-up with them -continue CPAP (11) Hyperbilirubinemia: Code(s): E80.6 - Other disorders of bilirubin metabolism Status: Acute Assessment and Plan: Mild -no evidence of liver disease -could be gilberts since it is all indirect -improving by the day Additional Plan Plan discussed with Dr. Ochoa Subjective Date/time seen: 11/10/20 09:06 Interval history: Pt is a 69-year-old male here for swelling. Patient was seen today and states his swelling has improved. He is no longer having any issues with shortness of breath. He did note that his catheter started having some blood in it overnight. He denies chest pain, shortness of breath, fevers, chills, abdominal pain, nausea
[2020-11-10 09:50] LABS: Add Urine Microscopic? YES; Appearance Urine Cloudy (Clear); Bilirubin Urine Negative (Negative); Blood Urine 3+ (Negative); Color Urine Red (Yellow); Glucose Urine UA Negative (Negative); Ketones Urine Negative (Negative); Leukocyte Esterase Ur Negative LEU/UL (Negative); Nitrate Urine Negative (Negative); Protein Urine 1+ mg/dL (Negative); RBC Urine >75 /hpf (0-2); Specific Grav Ur 1.009 (1.001-1.035); Urobilinogen Urine Negative mg/dL (<2.0)
[2020-11-10] MEDS: acetaZOLAMIDE TAB 250 MG TABLET 500 MG PO ×2 (10:14→20:27)
[2020-11-10 10:15] VITALS: PULSE 72
[2020-11-10] MEDS: atenoloL 25 MG TABLET PO (10:15)
[2020-11-10] MEDS: APIXABAN 5 MG TABLET PO ×2 (10:15→17:38)
[2020-11-10] MEDS: allopurinoL 300 MG TABLET PO (10:15)
[2020-11-10] MEDS: SPIRONOLACTONE 25 MG TABLET PO (10:16)
[2020-11-10] MEDS: methiMAzole 5 MG TAB PO (10:16)
[2020-11-10] MEDS: FINASTERIDE 5 MG TABLET PO (10:16)
[2020-11-10] MEDS: TOLNAFTATE 1% POWDER 45 GM BTL 1 APPLIC TOPICAL ×2 (10:16→20:28)
[2020-11-10] MEDS: POTASSIUM CHLORIDE 20 MEQ TABLET PO (10:21)
[2020-11-10 13:42] VITALS: BP 131/56; PULSE 66; RESP 20; TEMP 36.2; O2SAT 99
[2020-11-10 20:00] VITALS: O2SAT 99
[2020-11-10 20:54] VITALS: BP 127/49; PULSE 66; RESP 18; TEMP 36.6; O2SAT 100
[2020-11-11] MEDS: ACETAMINOPHEN 325 MG TABLET 650 MG PO ×2 (00:30→20:11)
[2020-11-11 05:16] LABS: Basophils Percent Auto 0.6 % (0.2-1.2); Eosinophils Absolute Auto 0.1 K/mm3 (0-0.3); Eosinophils Percent Auto 2.8 % (0-4.4); Hematocrit 31.9 % (42.0-52.0); Hemoglobin 10.4 g/dL (14.0-18.0); Immature Granulocyte Absolute 0.01 K/mm3 (0.00-0.031); Immature Granulocyte Percent A 0.3 % (0-0.5); Lymphocytes Absolute Auto 1.27 K/mm3 (0.9-3.2); Lymphocytes Percent Auto 35.7 % (18.3-44.2); Mean Corpuscular HGB Conc 32.6 g/dl (32-36); Mean Corpuscular Hemoglobin 29.3 pg (26-34); Mean Corpuscular Volume 89.9 fl (80-100); Mean Platelet Volume 12.4 fl (7.4-10.4); Monocytes Absolute Auto 0.4 K/mm3 (0.1-0.6); Monocytes Percent Auto 11.8 % (2.6-8.5); Neutrophils Absolute Auto 1.7 K/mm3 (1.3-6.7); Neutrophils Percent Auto 48.8 % (45.5-73.1); Platelet Count Result 133 k/mm3 (150-375); Red Blood Count 3.55 M/mm3 (4.6-6.20); Red Cell Distribution Width 15.6 % (11.5-14.5); White Blood Count 3.6 K/mm3 (4.5-10.0)
[2020-11-11 05:29] VITALS: BP 114/52; PULSE 57; RESP 18; TEMP 36.6; O2SAT 100
[2020-11-11 05:34] LABS: Alanine Aminotransferase 26 U/L (4-50); Albumin Level 2.8 g/dL (3.5-5.1); Alkaline Phosphatase 77 U/L (38-126); Anion Gap 7 mmol/L (8-16); Aspartate Amino Transferase 35 U/L (17-59); Bilirubin,Total 1.5 mg/dL (0.2-1.3); Blood Urea Nitrogen 25 mg/dL (9-20); Calcium 8.9 mg/dL (8.4-10.2); Carbon Dioxide 27 mmol/L (22-30); Chloride 103 mmol/L (98-107); Estimated CRCL calculation 79 ml/min; Estimated Glomerular Filt Rate > 60; Glucose 103 mg/dL (75-110); Potassium 3.4 mmol/L (3.4-5.0); Sodium 137 mmol/L (137-145)
[2020-11-11] MEDS: FUROSEMIDE INJ 40 MG/4 ML VIAL IV PUSH ×2 (05:55→17:13)
[2020-11-11 06:07] LABS: Atypical Lymphocytes Present; Ovalocytes 2+ (NORMAL)
[2020-11-11 06:08] LABS: Hypochromasia 1+ (NORMAL)
--- NOTE | 2020-11-11 08:07 | PM.IMPN ---
Progress Note: A&P Assessment and Plan (1) Hyperthyroidism: Code(s): E05.90 - Thyrotoxicosis, unspecified without thyrotoxic crisis or storm Status: Acute Assessment and Plan: The patient's TSH is undetectable and T4 is 5.7 which could be causing a lot of his symptoms -he also has been noting tremors and diarrhea as well as edema -Continue methimazole as well as atenolol -he needs a thyroid uptake scan but this cannot be done here [facility] as it needs a weeks notice -I have left a message with Dr. Perez -will follow his pancytopenia closely. It appears to be improving (2) Anasarca: Code(s): R60.1 - Generalized edema Status: Acute Assessment and Plan: Unclear etiology at this time but could be due to hypothyroidism and right heart failure -Appears worse today. I have added YADI wrap to the LE -Yesterday he had a negative fluid balance of -1150 so he is diuresing although not seen on exam -Will speak with Dr. Ochoa -the patient's echo shows severe pulmonary hypertension with tricuspid regurg. Could be right heart failure -continue CPAP -albumin is also low at 2.8 -Mild proteinuria, not enough to cause this much swelling -microalbuminuria could be due to UTI? Although urine culture negative. No diabetes suspected -will continue Lasix 40 mg b.i.d, spironolactone and Diamox -Muniz discontinued, continue strict I&Os -continue ceftriaxone -amlodipine stopped (3) Mass of kidney: Code(s): N28.89 - Other specified disorders of kidney and ureter Status: Acute Assessment and Plan: Found incidentally and is very small -follow with Urology outpatient (4) Groin rash: Code(s): R21 - Rash and other nonspecific skin eruption Status: Acute Assessment and Plan: Continue Tolnaftate topically BID. (5) Pancytopenia: Code(s): D61.818 - Other pancytopenia Status: Acute Assessment and Plan: Peripheral smear shows likely dilution or bone marrow disease -because of his clinical picture, suspect hemodilution -continue diuretic therapy and monitor -if he continues to be pancytopenic, may need bone marrow biopsy outpatient -atypical lymphs seen. Since he also has leukopenic, will check for mono (6) Chronic anticoagulation: Code(s): Z79.01 - information services manager (current) use of anticoagulants Status: Chronic Assessment and Plan: Continue Eliquis (7) Hypertension: Qualifiers: Hypertension type: unspecified Qualified Code(s): I10 - Essential (primary) hypertension Code(s): I10 - Essential (primary) hypertension Status: Chronic Assessment and Plan: Blood pressure 114/52 - continue atenolol (8) Suspected UTI: Code(s): R39.89 - Other symptoms and signs involving the genitourinary system Status: Acute Assessment and Plan: Urine culture negative but suspect possible UTI still a factor. -continue ceftriaxone -repeat UA (9) Hematuria: Code(s): R31.9 - Hematuria, unspecified Status: Acute Assessment and Plan: Improving -would recommend following up with Urology outpatient (10) Moderate to severe pulmonary hypertension: Code(s): I27.20 - Pulmonary hypertension, unspecified Status: Acute Assessment and Plan: Patient has a business investor and plans to follow-up with them -continue CPAP (11) Hyperbilirubinemia: Code(s): E80.6 - Other disorders of bilirubin metabolism Status: Acute Assessment and Plan: Mild and improving -no evidence of liver disease -could be gilberts since it is all indirect Subjective Date/time seen: 11/11/20 08:07 Interval history: Pt is a 69-year-old male here for swelling. Patient was seen today and does not think his swelling is better. He is no longer having any issues with shortness of breath. He denies chest pain, shortness of breath, feve
[2020-11-11 08:24] VITALS: PULSE 60
[2020-11-11] MEDS: methiMAzole 5 MG TAB PO (08:24)
[2020-11-11] MEDS: atenoloL 25 MG TABLET PO (08:24)
[2020-11-11] MEDS: POTASSIUM CHLORIDE 20 MEQ TABLET 40 MEQ PO (08:26)
[2020-11-11] MEDS: FINASTERIDE 5 MG TABLET PO (08:26)
[2020-11-11] MEDS: SPIRONOLACTONE 25 MG TABLET PO (08:26)
[2020-11-11] MEDS: acetaZOLAMIDE TAB 250 MG TABLET 500 MG PO ×2 (08:26→20:10)
[2020-11-11] MEDS: APIXABAN 5 MG TABLET PO ×2 (08:26→16:42)
[2020-11-11] MEDS: allopurinoL 300 MG TABLET PO (08:26)
[2020-11-11] MEDS: TOLNAFTATE 1% POWDER 45 GM BTL 1 APPLIC TOPICAL ×2 (08:27→21:24)
[2020-11-11 14:00] VITALS: BP 122/59; PULSE 66; RESP 18; TEMP 36.4; O2SAT 100
[2020-11-11 18:47] LABS: Monoscreen Negative (Negative); Negative Monotest Control Negative (Negative); Positive Monotest Control Positive (Positive)
[2020-11-11 20:00] VITALS: BP 121/60; PULSE 68; RESP 20; TEMP 36.3; O2SAT 100
[2020-11-11] MEDS: MELATONIN 3 MG TABLET PO (20:11)
[2020-11-12 04:00] VITALS: BP 122/58; PULSE 59; RESP 22; TEMP 36.3; O2SAT 100
[2020-11-12] MEDS: FUROSEMIDE INJ 40 MG/4 ML VIAL IV PUSH ×2 (05:51→17:18)
[2020-11-12 06:03] LABS: Basophils Percent Auto 0.3 % (0.2-1.2); Eosinophils Absolute Auto 0.1 K/mm3 (0-0.3); Eosinophils Percent Auto 3.5 % (0-4.4); Hematocrit 29.9 % (42.0-52.0); Hemoglobin 9.9 g/dL (14.0-18.0); Immature Granulocyte Absolute 0.01 K/mm3 (0.00-0.031); Immature Granulocyte Percent A 0.3 % (0-0.5); Lymphocytes Percent Auto 34.6 % (18.3-44.2); Mean Corpuscular HGB Conc 33.1 g/dl (32-36); Mean Corpuscular Hemoglobin 29.7 pg (26-34); Mean Corpuscular Volume 89.8 fl (80-100); Mean Platelet Volume 12.2 fl (7.4-10.4); Monocytes Absolute Auto 0.4 K/mm3 (0.1-0.6); Monocytes Percent Auto 13.8 % (2.6-8.5); Neutrophils Absolute Auto 1.4 K/mm3 (1.3-6.7); Neutrophils Percent Auto 47.5 % (45.5-73.1); Platelet Count Result 121 k/mm3 (150-375); Red Blood Count 3.33 M/mm3 (4.6-6.20); Red Cell Distribution Width 15.6 % (11.5-14.5); White Blood Count 2.9 K/mm3 (4.5-10.0)
[2020-11-12 06:19] LABS: Anion Gap 6 mmol/L (8-16); Blood Urea Nitrogen 29 mg/dL (9-20); Calcium 8.8 mg/dL (8.4-10.2); Carbon Dioxide 27 mmol/L (22-30); Chloride 105 mmol/L (98-107); Estimated CRCL calculation 73 ml/min; Estimated Glomerular Filt Rate > 60; Glucose 104 mg/dL (75-110); Potassium 3.5 mmol/L (3.4-5.0); Sodium 138 mmol/L (137-145)
[2020-11-12 07:02] LABS: Burr Cells 1+ (NORMAL); Helmet Cells 1+ (NORMAL); Ovalocytes 2+ (NORMAL); Schistocytes 1+ (NORMAL)
[2020-11-12 08:05] VITALS: PULSE 62
[2020-11-12] MEDS: SPIRONOLACTONE 25 MG TABLET PO (08:05)
[2020-11-12] MEDS: FINASTERIDE 5 MG TABLET PO (08:05)
[2020-11-12] MEDS: methiMAzole 5 MG TAB PO (08:05)
[2020-11-12] MEDS: APIXABAN 5 MG TABLET PO ×2 (08:05→16:11)
[2020-11-12] MEDS: acetaZOLAMIDE TAB 250 MG TABLET 500 MG PO ×2 (08:05→21:22)
[2020-11-12] MEDS: allopurinoL 300 MG TABLET PO (08:05)
[2020-11-12] MEDS: atenoloL 25 MG TABLET PO (08:05)
[2020-11-12] MEDS: POTASSIUM CHLORIDE 20 MEQ TABLET 40 MEQ PO (08:05)
[2020-11-12] MEDS: TOLNAFTATE 1% POWDER 45 GM BTL 1 APPLIC TOPICAL ×2 (08:07→21:23)
--- NOTE | 2020-11-12 10:30 | PM.IMPN ---
Progress Note: A&P Assessment and Plan (1) Hyperthyroidism: Code(s): E05.90 - Thyrotoxicosis, unspecified without thyrotoxic crisis or storm Status: Acute Assessment and Plan: The patient's TSH is undetectable and T4 is 5.7 which could be causing a lot of his symptoms -he also has been noting tremors and diarrhea as well as edema -Continue methimazole as well as atenolol -he needs a thyroid uptake scan but this cannot be done here [facility] as it needs a weeks notice -I have left a message with Dr. Perez -will follow his pancytopenia closely. (2) Anasarca: Code(s): R60.1 - Generalized edema Status: Acute Assessment and Plan: Unclear etiology at this time but could be due to hypothyroidism and right heart failure -much better today the [place] wraps although he was barely in a negative fluid balance yesterday -I am going to tight in his fluid restriction to 1200 -continue Lasix 40 mg b.i.d., spironolactone and Diamox. -the patient's echo shows severe pulmonary hypertension with tricuspid regurg. Could be right heart failure -continue CPAP -albumin is also low at 2.8 -Mild proteinuria, not enough to cause this much swelling -microalbuminuria could be due to UTI? Although urine culture negative. No diabetes suspected -continue ceftriaxone -amlodipine stopped (3) Mass of kidney: Code(s): N28.89 - Other specified disorders of kidney and ureter Status: Acute Assessment and Plan: Found incidentally and is very small -follow with Urology outpatient (4) Groin rash: Code(s): R21 - Rash and other nonspecific skin eruption Status: Acute Assessment and Plan: Continue Tolnaftate topically BID. (5) Pancytopenia: Code(s): D61.818 - Other pancytopenia Status: Acute Assessment and Plan: Peripheral smear shows likely dilution or bone marrow disease -because of his clinical picture, suspect hemodilution -continue diuretic therapy and monitor -if he continues to be pancytopenic, may need bone marrow biopsy outpatient -atypical lymphs seen. [place] screen negative (6) Chronic anticoagulation: Code(s): Z79.01 - [employer] terminal operator (current) use of anticoagulants Status: Chronic Assessment and Plan: Continue Eliquis (7) Hypertension: Qualifiers: Hypertension type: unspecified Qualified Code(s): I10 - Essential (primary) hypertension Code(s): I10 - Essential (primary) hypertension Status: Chronic Assessment and Plan: Blood pressure 122/58 - continue atenolol (8) Suspected UTI: Code(s): R39.89 - Other symptoms and signs involving the genitourinary system Status: Acute Assessment and Plan: Urine culture negative but suspect possible UTI still a factor. -continue ceftriaxone (He has received 4 doses, last dose will be today) -repeat UA (9) Hematuria: Code(s): R31.9 - Hematuria, unspecified Status: Acute Assessment and Plan: Improving -would recommend following up with Urology outpatient (10) Moderate to severe pulmonary hypertension: Code(s): I27.20 - Pulmonary hypertension, unspecified Status: Acute Assessment and Plan: Patient has a provider relations advocate and plans to follow-up with them -continue CPAP (11) Hyperbilirubinemia: Code(s): E80.6 - Other disorders of bilirubin metabolism Status: Acute Assessment and Plan: Mild and improving -no evidence of liver disease -could be gilberts since it is all indirect and improving with tx Subjective Date/time seen: 11/12/20 10:30 Interval history: Pt is a 69-year-old male here for swelling. Patient was seen today and is doing well. He thinks his swelling is much better and he absolutely hates his fluid restriction. He is no longer having any issues with shortness of breath. He denies chest pain, shortness of breath,
[2020-11-12 14:00] VITALS: BP 121/54; PULSE 64; RESP 18; TEMP 36.2; O2SAT 100
[2020-11-12] MEDS: ACETAMINOPHEN 325 MG TABLET 650 MG PO (21:20)
[2020-11-12 21:21] VITALS: BP 132/59; PULSE 64; RESP 18; TEMP 36.6; O2SAT 100
[2020-11-12] MEDS: MELATONIN 3 MG TABLET PO (21:22)
[2020-11-13 05:35] VITALS: BP 127/62; PULSE 56; RESP 16; TEMP 36.2; O2SAT 100
[2020-11-13 06:02] LABS: Alanine Aminotransferase 27 U/L (4-50); Albumin Level 2.8 g/dL (3.5-5.1); Alkaline Phosphatase 80 U/L (38-126); Anion Gap 5 mmol/L (8-16); Aspartate Amino Transferase 36 U/L (17-59); Bilirubin,Total 1.2 mg/dL (0.2-1.3); Blood Urea Nitrogen 29 mg/dL (9-20); Calcium 9.1 mg/dL (8.4-10.2); Carbon Dioxide 28 mmol/L (22-30); Chloride 106 mmol/L (98-107); Estimated CRCL calculation 62 ml/min; Estimated Glomerular Filt Rate 55; Glucose 90 mg/dL (75-110); Potassium 3.6 mmol/L (3.4-5.0); Sodium 139 mmol/L (137-145)
[2020-11-13 06:12] LABS: Eosinophils Absolute Auto 0.1 K/mm3 (0-0.3); Hemoglobin 10.1 g/dL (14.0-18.0); Immature Granulocyte Absolute 0.02 K/mm3 (0.00-0.031); Immature Granulocyte Percent A 0.7 % (0-0.5); Lymphocytes Absolute Auto 1.11 K/mm3 (0.9-3.2); Lymphocytes Percent Auto 36.9 % (18.3-44.2); Mean Corpuscular HGB Conc 32.6 g/dl (32-36); Mean Corpuscular Hemoglobin 29.4 pg (26-34); Mean Corpuscular Volume 90.1 fl (80-100); Mean Platelet Volume 12.5 fl (7.4-10.4); Monocytes Absolute Auto 0.4 K/mm3 (0.1-0.6); Monocytes Percent Auto 12.3 % (2.6-8.5); Neutrophils Absolute Auto 1.4 K/mm3 (1.3-6.7); Neutrophils Percent Auto 45.1 % (45.5-73.1); Platelet Count Result 135 k/mm3 (150-375); Red Blood Count 3.44 M/mm3 (4.6-6.20); Red Cell Distribution Width 15.6 % (11.5-14.5)
[2020-11-13] MEDS: FUROSEMIDE INJ 40 MG/4 ML VIAL IV PUSH ×2 (06:31→18:27)
[2020-11-13 08:42] VITALS: PULSE 68
[2020-11-13] MEDS: atenoloL 25 MG TABLET PO (08:42)
[2020-11-13] MEDS: FINASTERIDE 5 MG TABLET PO (08:42)
[2020-11-13] MEDS: APIXABAN 5 MG TABLET PO ×2 (08:42→17:31)
[2020-11-13] MEDS: allopurinoL 300 MG TABLET PO (08:42)
[2020-11-13] MEDS: acetaZOLAMIDE TAB 250 MG TABLET 500 MG PO ×2 (08:42→21:02)
[2020-11-13] MEDS: methiMAzole 5 MG TAB PO (08:43)
[2020-11-13] MEDS: POTASSIUM CHLORIDE 20 MEQ TABLET 40 MEQ PO (08:43)
[2020-11-13] MEDS: EUCERIN CREAM 120 GM JAR 1 APPLIC TOPICAL (08:43)
[2020-11-13] MEDS: SPIRONOLACTONE 25 MG TABLET PO (08:49)
[2020-11-13] MEDS: TOLNAFTATE 1% POWDER 45 GM BTL 1 APPLIC TOPICAL ×2 (08:49→21:02)
--- NOTE | 2020-11-13 10:00 | PM.IMPN ---
Progress Note: A&P Assessment and Plan (1) Hyperthyroidism: Code(s): E05.90 - Thyrotoxicosis, unspecified without thyrotoxic crisis or storm Status: Acute Assessment and Plan: The patient's TSH is undetectable and T4 is 5.7 which could be causing a lot of his symptoms -he also has been noting tremors and diarrhea as well as edema -Continue methimazole as well as atenolol -he needs a thyroid uptake scan but this cannot be done here [facility] as it needs a weeks notice -I have left a message with Dr. Perez x 2 about this -will follow his pancytopenia closely since he is on methimazole. Would recommend CBC to PCP in one week after d/c (2) Anasarca: Code(s): R60.1 - Generalized edema Status: Acute Assessment and Plan: Likely due to hypothyroidism and right heart failure -much better today the Nixon wraps although he was barely in a negative fluid balance again yesterday -His scrotum is still very swollen, I have asked ARVIND Young to keep this elevated -Cr creeping up, will monitor -may be able to discharge in 1-2 days. I would recommend at least lasix and potassium at discharge with repeat BMP -Continue fluid restriction at 1200 -continue Lasix 40 mg b.i.d., spironolactone and Diamox. -the patient's echo shows severe pulmonary hypertension with tricuspid regurg. Could be right heart failure -continue CPAP, follow up with his data analyst about his sever pulmonary htn -albumin is also low at 2.8 -Mild proteinuria, not enough to cause this much swelling -microalbuminuria could be due to UTI? Although urine culture negative. No diabetes suspected - ceftriaxone completed -amlodipine stopped (3) Mass of kidney: Code(s): N28.89 - Other specified disorders of kidney and ureter Status: Acute Assessment and Plan: Found incidentally and is very small -follow with Urology outpatient (4) Groin rash: Code(s): R21 - Rash and other nonspecific skin eruption Status: Acute Assessment and Plan: Continue Tolnaftate topically BID. (5) Pancytopenia: Code(s): D61.818 - Other pancytopenia Status: Acute Assessment and Plan: Peripheral smear shows likely dilution or bone marrow disease -because of his clinical picture, I suspected hemodilution on admission but it is not improving -He should be referred to a qualification engineer at discharge and may need bone marrow biopsy outpatient -atypical lymphs seen. [place] screen negative (6) Chronic anticoagulation: Code(s): Z79.01 - correction (current) use of anticoagulants Status: Chronic Assessment and Plan: Continue Eliquis (7) Hypertension: Qualifiers: Hypertension type: unspecified Qualified Code(s): I10 - Essential (primary) hypertension Code(s): I10 - Essential (primary) hypertension Status: Chronic Assessment and Plan: Blood pressure 127/62 - continue atenolol (8) Suspected UTI: Code(s): R39.89 - Other symptoms and signs involving the genitourinary system Status: Acute Assessment and Plan: Urine culture negative but suspect possible UTI still a factor. -ceftriaxone completed (9) Hematuria: Code(s): R31.9 - Hematuria, unspecified Status: Acute Assessment and Plan: -would recommend following up with Urology outpatient (10) Moderate to severe pulmonary hypertension: Code(s): I27.20 - Pulmonary hypertension, unspecified Status: Acute Assessment and Plan: Patient has a data analyst and plans to follow-up with them -continue CPAP (11) Hyperbilirubinemia: Code(s): E80.6 - Other disorders of bilirubin metabolism Status: Acute Assessment and Plan: Resolved -no evidence of liver disease -could be gilberts since it is all indirect and improved with tx Subjective Date/time seen: 11/13/20 10:00 Interval history: Pt
[2020-11-13] MEDS: ACETAMINOPHEN 325 MG TABLET 650 MG PO (13:49)
[2020-11-13 14:00] VITALS: BP 114/51; PULSE 56; RESP 18; TEMP 36.2; O2SAT 100
[2020-11-13] MEDS: MELATONIN 3 MG TABLET PO (21:01)
[2020-11-13 21:53] VITALS: BP 124/60; PULSE 58; RESP 22; TEMP 36.3; O2SAT 100
[2020-11-14 04:45] VITALS: BP 123/62; PULSE 60; RESP 20; TEMP 36.3; O2SAT 100
[2020-11-14 05:21] LABS: Basophils Percent Auto 0.9 % (0.2-1.2); Eosinophils Absolute Auto 0.1 K/mm3 (0-0.3); Eosinophils Percent Auto 3.6 % (0-4.4); Hematocrit 32.5 % (42.0-52.0); Hemoglobin 10.5 g/dL (14.0-18.0); Immature Granulocyte Absolute 0.01 K/mm3 (0.00-0.031); Immature Granulocyte Percent A 0.3 % (0-0.5); Lymphocytes Absolute Auto 1.09 K/mm3 (0.9-3.2); Mean Corpuscular HGB Conc 32.3 g/dl (32-36); Mean Corpuscular Hemoglobin 29.7 pg (26-34); Mean Corpuscular Volume 92.1 fl (80-100); Monocytes Absolute Auto 0.4 K/mm3 (0.1-0.6); Monocytes Percent Auto 13.3 % (2.6-8.5); Neutrophils Absolute Auto 1.6 K/mm3 (1.3-6.7); Neutrophils Percent Auto 48.9 % (45.5-73.1); Platelet Count Result 134 k/mm3 (150-375); Red Blood Count 3.53 M/mm3 (4.6-6.20); Red Cell Distribution Width 15.9 % (11.5-14.5); White Blood Count 3.3 K/mm3 (4.5-10.0)
[2020-11-14 05:28] LABS: Anion Gap 6 mmol/L (8-16); Blood Urea Nitrogen 29 mg/dL (9-20); Calcium 9.1 mg/dL (8.4-10.2); Carbon Dioxide 27 mmol/L (22-30); Chloride 105 mmol/L (98-107); Estimated CRCL calculation 62 ml/min; Estimated Glomerular Filt Rate 55; Glucose 92 mg/dL (75-110); Potassium 3.6 mmol/L (3.4-5.0); Sodium 138 mmol/L (137-145)
[2020-11-14] MEDS: FUROSEMIDE INJ 40 MG/4 ML VIAL IV PUSH ×2 (06:24→17:30)
[2020-11-14] MEDS: FINASTERIDE 5 MG TABLET PO (08:48)
[2020-11-14] MEDS: methiMAzole 5 MG TAB PO (08:48)
[2020-11-14] MEDS: allopurinoL 300 MG TABLET PO (08:48)
[2020-11-14] MEDS: APIXABAN 5 MG TABLET PO ×2 (08:48→17:30)
[2020-11-14] MEDS: POTASSIUM CHLORIDE 20 MEQ TABLET 40 MEQ PO (08:48)
[2020-11-14] MEDS: acetaZOLAMIDE TAB 250 MG TABLET 500 MG PO ×2 (08:48→20:19)
[2020-11-14] MEDS: SPIRONOLACTONE 25 MG TABLET PO (08:48)
[2020-11-14 08:49] VITALS: PULSE 69
[2020-11-14] MEDS: atenoloL 25 MG TABLET PO (08:49)
[2020-11-14] MEDS: EUCERIN CREAM 120 GM JAR 1 APPLIC TOPICAL (08:54)
[2020-11-14] MEDS: TOLNAFTATE 1% POWDER 45 GM BTL 1 APPLIC TOPICAL ×2 (08:54→20:20)
--- NOTE | 2020-11-14 09:58 | P.PNIM_ITS ---
Progress Note: A&P Assessment and Plan (1) Hyperthyroidism: Code(s): E05.90 - Thyrotoxicosis, unspecified without thyrotoxic crisis or storm Status: Acute Assessment and Plan: * The patient's TSH is undetectable and T4 is 5.7 which could be contributing his symptoms. * He also has been noting tremors and diarrhea as well as edema * Continue methimazole and atenolol. * He will follow up with Dr Perez for scheduling a thyroid uptake scan as outpatient. * Check CBC outpatient to monitor pancytopenia. (2) Anasarca: Code(s): R60.1 - Generalized edema Status: Acute Assessment and Plan: * Suspect related to hypothyroidism and right heart failure. Overall improving. * Better output today and yesterday. Continue YADI wraps and elevation. Continue fluid restriction. * Continue Lasix 40mg BID, spironolactone and diamox. * Echocardiogram demonstrates severe pulmonary hypertension and tricuspid regurg, could represent right heart failure. * Continue CPAP, follow up with his precinct police captain about pulm HTN. * Norvasc stopped which can contribute to swelling. (3) Mass of kidney: Code(s): N28.89 - Other specified disorders of kidney and ureter Status: Acute Assessment and Plan: * Incidental finding. No hematuria. 9mm left renal lesion. Seen by Dr Ortiz here and will follow up with him in 6mo for reimaging. (4) Groin rash: Code(s): R21 - Rash and other nonspecific skin eruption Status: Acute Assessment and Plan: * Continue Tolnaftate topically BID. (5) Pancytopenia: Code(s): D61.818 - Other pancytopenia Status: Acute Assessment and Plan: * Peripheral smear demonstrates likely dilution or bone marrow disease. Atypical lymphs seen. [place] screen negative * Because of his clinical picture, hemodilution was suspected on admission but we will recommend outpatient hematology evaluation. 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 (7) Hypertension: Qualifiers: Hypertension type: unspecified Qualified Code(s): I10 - Essential (primary) hypertension Code(s): I10 - Essential (primary) hypertension Status: Chronic Assessment and Plan: * Stable, last . Coreg was changed to atenolol. Continue atenolol. (8) Suspected UTI: Code(s): R39.89 - Other symptoms and signs involving the genitourinary system Status: Acute Assessment and Plan: * Urine culture negative but suspect possible UTI still a factor. Ceftriaxone completed. (9) Hematuria: Code(s): R31.9 - Hematuria, unspecified Status: Acute Assessment and Plan: * Would recommend following up with Urology outpatient (10) Moderate to severe pulmonary hypertension: Code(s): I27.20 - Pulmonary hypertension, unspecified Status: Acute Assessment and Plan: * Patient has a precinct police captain and plans to follow-up with them * Continue CPAP (11) Hyperbilirubinemia: Code(s): E8
--- NOTE | 2020-11-14 09:58 | PM.IMPN ---
Progress Note: A&P Assessment and Plan (1) Hyperthyroidism: Code(s): E05.90 - Thyrotoxicosis, unspecified without thyrotoxic crisis or storm Status: Acute Assessment and Plan: The patient's TSH is undetectable and T4 is 5.7 which could be contributing his symptoms. He also has been noting tremors and diarrhea as well as edema Continue methimazole and atenolol. He will follow up with Dr Perez for scheduling a thyroid uptake scan as outpatient. Check CBC outpatient to monitor pancytopenia. (2) Anasarca: Code(s): R60.1 - Generalized edema Status: Acute Assessment and Plan: Suspect related to hypothyroidism and right heart failure. Overall improving. Better output today and yesterday. Continue YADI wraps and elevation. Continue fluid restriction. Continue Lasix 40mg BID, spironolactone and diamox. Echocardiogram demonstrates severe pulmonary hypertension and tricuspid regurg, could represent right heart failure. Continue CPAP, follow up with his bridge manager about pulm HTN. Norvasc stopped which can contribute to swelling. (3) Mass of kidney: Code(s): N28.89 - Other specified disorders of kidney and ureter Status: Acute Assessment and Plan: Incidental finding. No hematuria. 9mm left renal lesion. Seen by Dr Ortiz here and will follow up with him in 6mo for reimaging. (4) Groin rash: Code(s): R21 - Rash and other nonspecific skin eruption Status: Acute Assessment and Plan: Continue Tolnaftate topically BID. (5) Pancytopenia: Code(s): D61.818 - Other pancytopenia Status: Acute Assessment and Plan: Peripheral smear demonstrates likely dilution or bone marrow disease. Atypical lymphs seen. [place] screen negative Because of his clinical picture, hemodilution was suspected on admission but we will recommend outpatient hematology evaluation. (6) Chronic anticoagulation: Code(s): Z79.01 - intermediate school teacher (current) use of anticoagulants Status: Chronic Assessment and Plan: Maintained on Eliquis for treatment of DVT. (7) Hypertension: Qualifiers: Hypertension type: unspecified Qualified Code(s): I10 - Essential (primary) hypertension Code(s): I10 - Essential (primary) hypertension Status: Chronic Assessment and Plan: Stable, last . Coreg was changed to atenolol. Continue atenolol. (8) Suspected UTI: Code(s): R39.89 - Other symptoms and signs involving the genitourinary system Status: Acute Assessment and Plan: Urine culture negative but suspect possible UTI still a factor. Ceftriaxone completed. (9) Hematuria: Code(s): R31.9 - Hematuria, unspecified Status: Acute Assessment and Plan: Would recommend following up with Urology outpatient (10) Moderate to severe pulmonary hypertension: Code(s): I27.20 - Pulmonary hypertension, unspecified Status: Acute Assessment and Plan: Patient has a bridge manager and plans to follow-up with them Continue CPAP (11) Hyperbilirubinemia: Code(s): E80.6 - Other disorders of bilirubin metabolism Status: Acute Assessment and Plan: Resolved. No evidence of liver disease Subjective Date/time seen: 11/14/20 09:30 Interval history: Mr. Mejia is a pleasant 69yo M admitted for swelling. He is doing well today and notes his swelling is quite improved. Scrotal swelling is improved and is softer than days
[2020-11-14] MEDS: ACETAMINOPHEN 325 MG TABLET 650 MG PO ×2 (11:13→22:20)
[2020-11-14 14:00] VITALS: BP 110/48; PULSE 59; RESP 18; TEMP 36.4; O2SAT 100
[2020-11-14] MEDS: MELATONIN 3 MG TABLET PO (20:19)
[2020-11-14 22:00] VITALS: BP 123/56; PULSE 61; RESP 14; TEMP 36.4; O2SAT 100
[2020-11-15] MEDS: FUROSEMIDE INJ 40 MG/4 ML VIAL IV PUSH (05:31)
[2020-11-15 05:41] LABS: Basophils Percent Auto 0.3 % (0.2-1.2); Eosinophils Absolute Auto 0.1 K/mm3 (0-0.3); Hematocrit 32.1 % (42.0-52.0); Hemoglobin 10.4 g/dL (14.0-18.0); Immature Granulocyte Absolute 0.01 K/mm3 (0.00-0.031); Immature Granulocyte Percent A 0.3 % (0-0.5); Immature Platelet Fraction Pct 3.7 % (0.9-11.2); Lymphocytes Absolute Auto 1.14 K/mm3 (0.9-3.2); Lymphocytes Percent Auto 37.5 % (18.3-44.2); Mean Corpuscular HGB Conc 32.4 g/dl (32-36); Mean Corpuscular Hemoglobin 29.9 pg (26-34); Mean Corpuscular Volume 92.2 fl (80-100); Mean Platelet Volume 12.6 fl (7.4-10.4); Monocytes Absolute Auto 0.4 K/mm3 (0.1-0.6); Monocytes Percent Auto 11.5 % (2.6-8.5); Neutrophils Absolute Auto 1.4 K/mm3 (1.3-6.7); Neutrophils Percent Auto 47.4 % (45.5-73.1); Platelet Count Result 128 k/mm3 (150-375); Red Blood Count 3.48 M/mm3 (4.6-6.20); Red Cell Distribution Width 15.6 % (11.5-14.5)
[2020-11-15 05:47] VITALS: BP 128/59; PULSE 56; RESP 14; TEMP 36.4; O2SAT 100
[2020-11-15 05:51] LABS: Anion Gap 6 mmol/L (8-16); Blood Urea Nitrogen 28 mg/dL (9-20); Carbon Dioxide 27 mmol/L (22-30); Chloride 106 mmol/L (98-107); Estimated CRCL calculation 67 ml/min; Estimated Glomerular Filt Rate 60; Glucose 91 mg/dL (75-110); Magnesium 2.3 mg/dL (1.6-2.3); Potassium 3.6 mmol/L (3.4-5.0); Sodium 139 mmol/L (137-145)
[2020-11-15 08:21] VITALS: PULSE 67
[2020-11-15] MEDS: POTASSIUM CHLORIDE 20 MEQ TABLET 40 MEQ PO (08:21)
[2020-11-15] MEDS: atenoloL 25 MG TABLET PO (08:21)
[2020-11-15] MEDS: SPIRONOLACTONE 25 MG TABLET PO (08:21)
[2020-11-15] MEDS: acetaZOLAMIDE TAB 250 MG TABLET 500 MG PO (08:21)
[2020-11-15] MEDS: allopurinoL 300 MG TABLET PO (08:21)
[2020-11-15] MEDS: FINASTERIDE 5 MG TABLET PO (08:22)
[2020-11-15] MEDS: methiMAzole 5 MG TAB PO (08:22)
[2020-11-15] MEDS: APIXABAN 5 MG TABLET PO (08:22)
[2020-11-15] MEDS: EUCERIN CREAM 120 GM JAR 1 APPLIC TOPICAL (08:24)
[2020-11-15] MEDS: TOLNAFTATE 1% POWDER 45 GM BTL 1 APPLIC TOPICAL (08:24)
--- NOTE | 2020-11-15 18:15 | PM.DS ---
DS: Admitting Diagnosis Admitting Diagnosis Admitting Diagnosis: Anasarca DS: Discharge Diagnosis Discharge Diagnosis (1) Hyperthyroidism: Code(s): E05.90 - Thyrotoxicosis, unspecified without thyrotoxic crisis or storm Status: Acute Assessment and Plan: Date of Admission 11/07/20 Date of Discharge/DOS 11/15/20 Mr Mejia is a 69yo M with history of hypertension, on anticoagulation with Eliquis for treatment of DVT who presented to the ED for evaluation of bilateral lower extremity and scrotal swelling, worsening over the last 1 month. He responded well to aggressive diuresis initially with IV lasix. He was seen by nephrology, Dr Ochoa, and acetazolamide and spironolactone were added when bicarbonate level started to rise. He tolerated YADI wraps to MATT lower legs and elevating his legs. Fluid restriction of 1,200mL/day was initiated. His swelling is now much improved. TSH was found to be markedly low with elevated T4 consistent with hyperthyroidism. This is a new diagnosis for him. He was started on oral methimazole. His home coreg was switched to atenolol. He will discuss scheduling a thyroid uptake scan as an outpatient with his PCP. Norvasc was stopped. Labs demonstrate pancytopenia and will follow up with hematology outpatient. He was found to have hematuria initially on arrival which is now resolved. Additionally he was incidentally found to have small left renal lesion detailed below and was seen by urology, Dr Ortiz; will follow up in 6 months for reimaging. He has pulmonary hypertension and is encouraged to follow up with his established information systems consultant for same. He is feeling well, swelling is improved and he is hemodynamically stable for discharge 11/15/20 with instructions to follow up with Dr Perez next week. I have spoken with Dr Perez on the phone today to discuss plan of care. The patient's TSH is undetectable and T4 is 5.7 which could be contributing his symptoms. He also has been noting tremors and diarrhea as well as edema Continue methimazole and atenolol. He will follow up with Dr Perze for scheduling a thyroid uptake scan as outpatient. Check CBC outpatient to monitor pancytopenia. (2) Anasarca: Code(s): R60.1 - Generalized edema Status: Acute Assessment and Plan: Suspect related to hypothyroidism and right heart failure. Overall improving. Better output today and yesterday. Continue YADI wraps and elevation. Continue fluid restriction. Continue Lasix 40mg BID. Also received diamox and spironolactone inpatient. Echocardiogram demonstrates severe pulmonary hypertension and tricuspid regurg, could represent right heart failure. Continue CPAP, follow up with his information systems consultant about pulm HTN. Norvasc stopped which can contribute to swelling. (3) Mass of kidney: Code(s): N28.89 - Other specified disorders of kidney and ureter Status: Acute Assessment and Plan: Incidental finding. 9mm left renal lesion. Seen by Dr Ortiz here and will follow up with him in 6mo for reimaging. (4) Groin rash: Code(s): R21 - Rash and other nonspecific skin eruption Status: Acute Assessment and Plan: Continue Tolnaftate topically BID. (5) Pancytopenia: Code(s): D61.818 - Other pancytopenia Status: Acute Assessment and Plan: Peripheral smear demonstrates likely dilution or bone marrow disease. Atypical lymphs seen. [place] screen negative Because of his clinical picture, hemodilution was suspected on admission but we will recommend outpatient hematology evaluation. 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
== END 2020-11-15 11:45 | disposition home or self-care (01) | DRG 644 ==
LOC: ANHED 19:55 → ANH2MED 20:54
PROVIDERS: Internal Medicine Nephrology; Physician Assistant; Admitting Provider Family Medicine; Emergency Provider Emergency Medicine; PCP Internal Medicine; Visit Provider Physician Assistant
DX: E05.90 Thyrotoxicosis, unspecified without thyrotoxic crisis or storm (principal); D61.818 Other pancytopenia; N28.89 Other specified disorders of kidney and ureter; R21 Rash and other nonspecific skin eruption; R31.9 Hematuria, unspecified; I27.20 Pulmonary hypertension, unspecified; I11.0 Hypertensive heart disease with heart failure; I50.9 Heart failure, unspecified; E80.6 Other disorders of bilirubin metabolism; N40.0 Benign prostatic hyperplasia without lower urinary tract symptoms; R60.1 Generalized edema; Z79.01 Long term (current) use of anticoagulants; Z87.891 Personal history of nicotine dependence; Z86.718 Personal history of other venous thrombosis and embolism
CPT/HCPCS: 36415; 71046; 74177; 76870; 80048; 80053; 80076; 80202; 81001; 82043; 82570; 82607; 82746; 83735; 83874; 83880; 84132; 84156; 84300; 84439; 84443; 84480; 85025; 85027; 85055; 86308; 87040; 87086; 93306; 93976; 93979; 96374; 96376; 99285; A9270; G0378; J0696; J1650; J1940; Q9967